=== PATIENT | male | born 1990 | race Caucasian/White ===

== ENCOUNTER 2018-11-09 20:27 | Emergency (ER) | payer OTHER ==
--- NOTE | 2018-11-09 21:08 | EDPHY ---
H & P Stated Complaint: SOB x1 week Time Seen by Provider: 11/09/18 20:36 HPI/ROS: CHIEF COMPLAINT: Shortness of breath History by patient HISTORY OF PRESENT ILLNESS: 27-year-old man with a history of "seasonal asthma " presents complaining of intermittent episodes of shortness of breath for the past week which tonight became but severe. Patient states that he feels like he can't get enough air and that when he takes a deep breath in gets stuck. He describes a tightness or heaviness in his chest associated with this. There is no pleuritic chest pain. He has noticed that symptoms are it typically worse late in the afternoon or when he gets home from work or when he lies down. They do not wake him from sleep. He has also noticed they get worse when he walks up stairs or does any exertion and seemed to improve when he rests. Patient states that he bought a gym membership last week but has not yet gone because he has been afraid to because of this trouble breathing. Tonight symptoms got bad around 5:00 p.m. After he arrived home from work. He denies any leg pain or swelling. He does note some tingling in his fingers and around his mouth. He denies any fever, cough, nausea vomiting. Patient quit smoking about a year ago. Patient cut down on his alcohol consumption about 6 months ago although he still continues to drink occasionally. His last drink was about a week ago when he had 2 bloody Isabel's at breakfast with his mother. He denies any prior history of alcohol withdrawal symptoms. He said he was diagnosed with a panic attack once in the past when he got numbness all over his body but did not have associated shortness of breath at that time. He denies any cocaine or methamphetamine use. His cholesterol is unknown. He has no history of hypertension but his states that his blood pressure has been high when they checked at the drugstore in the past. His father had his 1st PR at age 29 and has had 3 MIs and a triple bypass. Patient notes that he is about to turn 28 himself. He is currently employed in sales. REVIEW OF SYSTEMS: As in HPI, and all other systems reviewed and are negative Source: Patient, Family - Personal History Current Tetanus/Diphtheria Vaccine: No Current Tetanus Diphtheria and Acellular Pertussis (TDAP): No - Medical/Surgical History Hx Asthma: Yes Hx Chronic Respiratory Disease: No Hx Diabetes: No Hx Cardiac Disease: No Hx Renal Disease: No Hx Cirrhosis: No Hx Alcoholism: No Hx HIV/AIDS: No Hx Splenectomy or Spleen Trauma: No Other PMH: Anxiety, asthma - Social History Smoking Status: Never smoked - Physical Exam Exam: General Appearance: Alert, hyperventilating, anxious appearing Head: normocephalic, atraumatic Eyes: Pupils equal and round, reactive to light, no pallor or injection. Mouth: Mucous membranes moist. Oropharynx clear Neck: No bony tenderness, full range of motion Respiratory: Normal, effort, lungs are clear to auscultation. No wheezes, rales or rhonchi. Cardiovascular: Regular rate and rhythm. S1, S2, no murmurs, gallops or rubs appreciated Gastrointestinal: Abdomen is soft and nontender, no masses, bowel sounds normal. Back: No CVA tenderness, no bony tenderness Neurological: Awake, alert and oriented x 3, cranial nerves 2-12 intact, no pronator drift, normal gait, Skin: Warm and dry, no rashes. Musculoskeletal: No deformities or tenderness. Extremities: full range of motion, no edema, DP2+ bilat Psychiatric: Patient has normal affect, there is no agitation. Constitutional: Initial Vital Signs Temperature (C) 36.9 C 11/09/18 20:32 Heart Rate 83 11/09/18 20:32 Respiratory Rate 20 11/09/18 20:32 Blood Pressure 147/98 H 11/09/18 20:32 O2 Sat (%) 99 11/09/18 20:32 O2 Delivery Mode Room Air Allergies/Adverse Reactions: No Known Allergies Allergy (Unverified 11/09/18 20:38) Home Medications: Medication Instructions Recorded Ranitidine HCl [Zantac] 11/09/18 Medical Decision Making - Diagnostics EKG Interpretation: Normal sinus rhythm at a rate of 70 with normal axis, normal intervals and no ST segment abnormalities. Impression: Normal EKG Imaging Results: Imaging Impressions Chest X-Ray 11/09/18 21:04 Impression: Alexandra most compatible with airways disease are noted. ED Course/Re-evaluation: 27-year-old man presents with shortness of breath, hyperventilating and anxious and also with significant family history for heart disease and concerning exertional symptoms. Patient's blood pressure was noted to be slightly high. ECG showed nothing acute. Patient was given an oral aspirin and Ativan 0.5 mg IV x1. A chest x-ray showed nothing acute. Patient's labs were notable for negative 1st troponin, normal CBC and normal electrolytes and renal function. Patient was feeling better after the dose of Ativan. The plan was to repeat a 2nd troponin after 3 hr given that the patient has a low heart score however the patient did not want to stay to have the repeat troponin. We discussed the risks of this not excluding myocardial damage if we do not repeat the test, but however the patient preferred to go home. My suspicion is the patient's symptoms are more likely due to anxiety than cardiac at this point anyway. I have referred him to [facility] to establish primary care to follow up with his symptoms persist, to get help continue to stay sober and evaluate for anxiety. I discussed this with the patient his . - Data Points Laboratory Results: 11/09/18 11/09/18 21:16 21:15 POC Sodium 139 mEq/L mEq/L (135-145) POC Potassium 3.4 mEq/L mEq/L (3.3-5.0) POC Chloride 110.0 mEq/L mEq/L (97-110) POC Total CO2 23 mEq/L mEq/L (22-31) POC BUN 16 mg/dL mg/dL (7-23) POC Creatinine 1.0 mg/dL mg/dL (0.7-1.3) POC Glucose 144 mg/dL H mg/dL (70-100) POC Calcium 9.8 mg/dL mg/dL (8.5-10.4) POC Troponin I 0.00 ng/mL ng/mL (0.00-0.08) Medications Given: Discontinued Medications Aspirin (Aspirin) 324 mg PO EDNOW ONE Stop: 11/09/18 21:13 Last Admin: 11/09/18 21:25 Dose: 324 mg Lorazepam (Ativan Injection) 0.5 mg IVP EDNOW ONE Stop: 11/09/18 21:12 Last Admin: 11/09/18 21:26 Dose: 0.5 mg Point of Care Test Results: CBC CBC Collection Date 11/09/18 CBC Collection Time 21:06 WBC 8.49 RBC 4.97 HGB 15.2 HCT 42.7 PLT 231 Neut # 3.81 Neut 44.9 LYMPH # 3.93 LYMPH 46.3 MCV 85.9 Chemistry 11/09/18 11/09/18 21:16 21:15 POC Sodium 139 mEq/L mEq/L (135-145) POC Potassium 3.4 mEq/L mEq/L (3.3-5.0) POC Chloride 110.0 mEq/L mEq/L (97-110) POC Total CO2 23 mEq/L mEq/L (22-31) POC BUN 16 mg/dL mg/dL (7-23) POC Creatinine 1.0 mg/dL mg/dL (0.7-1.3) POC Glucose 144 mg/dL H mg/dL (70-100) POC Calcium 9.8 mg/dL mg/dL (8.5-10.4) POC Troponin I 0.00 ng/mL ng/mL (0.00-0.08) Departure - Departure Disposition: Home, Routine, Self-Care Clinical Impression: Anxiety Dyspnea, unspecified Qualifiers: Dyspnea type: shortness of breath Qualified Code(s): R06.02 - Shortness of breath Condition: Good Instructions: Anxiety (ED), Shortness of Breath (ED) Additional Instructions: You were seen by Dr. Sarah Kamara today. Your chest x-ray, EKG and blood work were all normal. Normally we repeat the troponin test after 3 hr, but you have declined to stay for this test. We therefore can't exclude damage to your heart muscle. I recommend close follow up and establishing a primary care physician to evaluate you for these shortness of breath symptoms as well as to help you stay sober and discuss need for anxiety treatment. Please call [facility], Dr. Scales or 1 of his partners, to establish a primary care physician as soon as possible. Return for any worsening or new concerns. Referrals: NONE *PRIMARY CARE P,. [Primary Care Provider] - As per Instructions Jonathan Scales MD [Medical Doctor] - As per Instructions
[2018-11-09] MEDS ORDERED: LORazepam 2 MG/ML INJ IVP ONE (21:11)
[2018-11-09] MEDS ORDERED: ASPIRIN 81 MG CHEWABLE TAB PO ONE (21:12)
[2018-11-09 21:37] VITALS: BP 146/96
--- NOTE | 2018-11-18 19:31 | CPEKG ---
Test Reason : Blood Pressure : / mmHG Vent. Rate : 070 BPM Atrial Rate : 070 BPM P-R Int : 163 ms QRS Dur : 091 ms QT Int : 383 ms P-R-T Axes : 026 063 032 degrees QTc Int : 414 ms Sinus rhythm Confirmed by John Christensen ([id number]) on 11/18/2018 7:31:04 PM Referred By: Sarah Kamara Confirmed By:John Christensen
== END 2018-11-09 22:17 | disposition home or self-care (01) ==
LOC: CED 20:27
DX: F41.9 Anxiety disorder, unspecified (principal); R06.02 Shortness of breath; R03.0 Elevated blood-pressure reading, without diagnosis of hypertension; J45.909 Unspecified asthma, uncomplicated; Z82.49 Family history of ischemic heart disease and other diseases of the circulatory system
CPT/HCPCS: 71046-PO; 80048-ER; 84484-ER; 85025-QW-ER; 96374-ER; 99285-ER; J2060